=== PATIENT | female | born 2000 | race Hispanic/Latino ===

== ENCOUNTER 2020-09-27 19:18 | Day surgery (SDC) | payer MEDICAID ==
[2020-09-27 20:16] VITALS: BP 103/70; TEMP 98.5; BMI 33.3
[2020-09-27 20:17] LABS: Amnisure Test No Membranes Rupture (No Rupture)
[2020-09-27 20:18] LABS: Amnisure Internal Control QC ACCEPTABLE (ACCEPTABLE)
--- NOTE | 2020-09-27 21:00 | PDOC.FPROB ---
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 She states that today around 3pm she began to have some abdominal cramping which persisted, prompting her to come to the hospital. She denied VD, VB, CP, SOB, vision changes/blurry vision, fever/chills, dysuria, hematuria. She stated that she was feeling movement but no contractions at this time. Primary Care Physician: MARC Floyd FMR OB H&P: Current - Care : 0 Para: 1 Gestational age: 38.4 Due date: 10/07/20 Dating Criteria: 24 week sono - OB Labs Blood type: O RH: positive Antibody Screen: negative HIV: negative RPR: negative HepBsAg: negative Rubella: immune Urine drug screen: negative Gonorrhea: negative 1 hour gtt: 56 FMR OB H&P: History - Past Medical History PMH: -none - OB History OB History: -none - ROLL TESTER History ROLL TESTER History: -none - Surgical History Sx History: -none - Social History Social History: -no TAD - Family History Family History: -non contributory FMR OB H&P: Medications - Current Home Medications: Medication Instructions Recorded Confirmed Type No Known 09/27/20 09/27/20 History Allergies/Adverse Reactions: Allergies Allergy/AdvReac Type Severity Reaction Status Date / Time No Known Allergies Allergy Verified 09/27/20 20:02 FMR OB H&P: ROS - Review of Systems General: denies: fever/chills, night sweats, fatigue Eyes: denies: vision changes, double vision ENT: denies: nasal congestion, rhinorrhea Cardiovascular: denies: chest pain, palpitation, edema Respiratory: denies: cough, congestion, shortness of breath Gastrointestinal: reports: cramping. denies: abdominal pain, indigestion, bloating Genitourinary (Female): denies: incontinence, dysuria, hematuria, polyuria, v aginal discharge, vaginal pain, vaginal bleeding, vaginal pressure Musculoskeletal: denies: pain Neurologic: denies: numbness, weakness FMR OB H&P: Vital Signs - Maternal Vital signs: Vital Signs - First Documented Temp Pulse Resp BP 98.5 F 77 18 103/70 09/27/20 19:50 09/27/20 19:50 09/27/20 19:50 09/27/20 19:50 - Heart Tones Baseline: 150 Variability: moderate Acceleration: absent Category: category 1 [place] contractions every: none seen FMR OB H&P: Physical Exam - Physical Exam General: NAD, awake, alert and oriented HEENT: normocephalic and atraumatic, PERRLA Neck: supple Chest: non-tender to palpation Heart: RRR, normal S1/S2, no murmurs/rubs/gallops General: CTAB, no respiratory distress, good air movement, no wheezing Abdomen: soft, gravid Neurological: no focal deficit Lymphatic: no unusual bruising or bleeding Psychiatric: intact recent and remote memory, good judgement and insight, normal mood and affect - Pelvic Exam SVE: /-3 per nursing FMR OB H&P: Results - Labs Lab results: Laboratory Results - last 24 hr 09/27/20 19:50 Amnio Swab Test No Membranes Rupture FMR OB H&P: A/P Disposition: Pt 20 y/o at 38.4 wga dated by 24 wk sono presents today after feeling LOF. ##sIUP -at 38.4 wga dated with 24 wk sono -SVE /-3 per nursing -FHT, FHR 140-150s with mod variability. Cat 1 strip. No contractions noted -maternal labs negative so far -GBS negative -will order Amnsiure, perform sterile spec exam, and obtain bedside SARA ##Hx of E.coli UTI in -[place], was treated accordingly ##Late to Care -aware ##Hx of poor growth -aware -trended growth every 4-6 wks. Growth sono on 08/14 showed [place] 25.9% @ 32wga ##Excessive weight gain during -aware -gained about 50 lbs so far in , has discussed healthy diet and exercise Addendum: Amnisure was negative. Sterile spec exam performed with no pooling of fluid noted, discharge noted, for which VP3 swab was obtained. Bedside SARA was performed by Dr. Siddiqui which showed Q1 3.99, Q2 4.44, Q3 4.38, Q4 4.12. Therefore with all results, pt was determined to not be in labor, sent home with return precautions. Stated that we will call with VP3 results. Pt voiced understanding. Discussion: Date/Time: 09/27/202058 This H&P was discussed with Dr. Siddiqui who agree with the above documentation and plan. Addendum - Attending - Attending Attestation Date/Time: 09/28/20817 I personally evaluated the patient and discussed the management with Dr. Greene. I agree with the History, Examination, Assessment and Plan documented above with any addition or exceptions noted below. see my event note.
--- NOTE | 2020-09-27 21:13 | PDOC.EVN ---
Event Note - Event Note Event Note: seen and evaluated. Per residents, increased vaginal discharge. VP3 pending. sterile spec and amnisure negative. NST reactive. SARA approx 16 cm. d/c home. f/u VP3. RTC precautions given.
[2020-09-27] MEDS ORDERED: hydrALAZINE 20 MG/ML VIAL SLOW IVP PRN (21:31)
== END 2020-09-27 21:38 | disposition home or self-care (01) ==
LOC: L&D/OP 19:18
PROVIDERS: ATTEND Family Medicine
DX: O99.891 Other specified diseases and conditions complicating pregnancy (principal); N89.8 Other specified noninflammatory disorders of vagina; O36.5930 Maternal care for other known or suspected poor fetal growth, third trimester, not applicable or unspecified; O09.33 Supervision of pregnancy with insufficient antenatal care, third trimester; Z3A.38 38 weeks gestation of pregnancy
CPT/HCPCS: 76815; 84112; 87480; 87510; 87660; 99285

== ENCOUNTER 2020-09-29 00:11 | Inpatient (IN) | payer MEDICAID, OTHER ==
--- NOTE | 2020-09-29 00:52 | PDOC.FPROB ---
FMR OB H&P: HPI - History of Present Illness Chief Complaint: Contractions Indentification: 20 y/o at 38.6 wga dated by 24 wk sono History of Present Illness: Pt is a 20 y/o at 38.6 wga dated by 24 wk sono who presents to OB triage today with contractions that began at 5pm today that she stated were initially about 20 minutes apart and then became closer together 3-5 min apart. She states that she felt LOF also that soaked her underwear and noticed some blood as well which prompted her to come to the hospital. She states that she did not have VD and denied CP/SOB, headache, blurry vision. She did endorse movement and continues to endorse contractions. Primary Care Physician: SHADIC: Mariel FMR OB H&P: Current - Care : 1 Para: 0 Gestational age: 38.4 wga Due date: 10/07/20 Dating Criteria: 24 wk sono - OB Labs Blood type: O RH: positive Antibody Screen: negative HIV: negative RPR: negative HepBsAg: negative Rubella: immune Gonorrhea: negative Chlamydia: negative 1 hour gtt: 56 GBS: negative FMR OB H&P: History - Past Medical History PMH: -none - OB History OB History: -none - [place] CONSULTANT History [employer] CONSULTANT History: -none - Surgical History Sx History: -none - Social History Social History: -no TAD, FOB involved - Family History Family History: -non-contributory FMR OB H&P: Medications - Current Home Medications: Medication Instructions Recorded Confirmed Type No Known 09/27/20 09/27/20 History Allergies/Adverse Reactions: Allergies Allergy/AdvReac Type Severity Reaction Status Date / Time No Known Allergies Allergy Verified 09/27/20 20:02 FMR OB H&P: ROS - Review of Systems General: denies: fever/chills Eyes: denies: vision changes, double vision ENT: denies: nasal congestion, rhinorrhea Cardiovascular: denies: chest pain, palpitation Respiratory: denies: cough, congestion, shortness of breath Gastrointestinal: denies: abdominal pain, indigestion, diarrhea, constipation Genitourinary (Female): reports: contractions. denies: incontinence, dysuria, hematuria, polyuria, hesitancy, vaginal discharge, vaginal pain, vaginal bleeding, vaginal pressure Musculoskeletal: denies: pain FMR OB H&P: Vital Signs - Maternal Vital signs: BP 103/71 HR 66, RR 16 - Heart Tones Baseline: 140 Variability: moderate Acceleration: present Deceleration: absent Category: category 1 [place] contractions every: every 6-10 min FMR OB H&P: Physical Exam - Physical Exam General: NAD, awake, alert and oriented Heart: RRR, normal S1/S2, no murmurs/rubs/gallops General: CTAB, no respiratory distress, good air movement, no wheezing, no retractions Abdomen: gravid Musculoskeletal: FROM in all four extremities Neurological: no focal deficit Psychiatric: intact recent and remote memory, good judgement and insight, normal mood and affect - Pelvic Exam SVE: /-3 per nursing Membranes: spec exam performed which showed pooling of fluid FMR OB H&P: A/P Disposition: Pt 20 y/o at 38.6 wga dated by 24 wk sono presents today after feeling LOF and contractions. ##sIUP -at 38.6 wga dated with 24 wk sono -SVE /-3 per nursing -FHT: FHR 140-150s with mod variability. Cat 1 strip. contractions noted about 6-10 min apart, maternal VSS -maternal labs negative so far -GBS negative -spec exam showed pooling of fluid, some bloody show seen -camacho score currently a 5 ##Excessive weight gain during -aware -gained about 50 lbs so far in , has discussed healthy diet and exercise ##Late to Care -aware ##Hx of poor growth -aware -trended growth every 4-6 wks. Growth sono on 08/14 showed [place] 25.9% @ 32wga ##Hx of E.coli UTI in -[place], was treated accordingly PNC: Mariel Plan: continue to monitor. will recheck in a few hours and reassess. Discussion: Date/Time: 09/29/2051 This H&P was discussed with Dr. Lopez who agree with the above documentation and plan.
[2020-09-29] MEDS ORDERED: hydrALAZINE 20 MG/ML VIAL SLOW IVP PRN ×3 (01:05→18:16)
[2020-09-29] MEDS: Lactated Ringer's 1,000 ML IV SCH ×3 (01:10→07:23)
[2020-09-29] MEDS ORDERED: Lidocaine 1% (PF) 30 ML VIAL SC PRN (01:19)
[2020-09-29] MEDS ORDERED: NS / Oxytocin 40 units/1000ml 1,000 ML IV PRN (01:19)
[2020-09-29] MEDS ORDERED: Acetaminophen 500 MG TAB PO PRN (01:19)
[2020-09-29] MEDS ORDERED: Promethazine HCl 25 MG/ML VIAL IM PRN ×2 (01:19→05:07)
[2020-09-29] MEDS ORDERED: Ondansetron PF 4 MG/2 ML Vial IVP PRN ×3 (01:19→18:16)
[2020-09-29] MEDS ORDERED: NS w/ Oxytocin 10 units 500 ML IV SCH ×2 (01:30)
[2020-09-29] MEDS ORDERED: Butorphanol Tartrate 1 MG/ML VIAL SLOW IVP PRN (01:33)
[2020-09-29 01:44] LABS: Hemoglobin 11.7 g/dL (12.0-16.0); Mean Corpuscular HGB CONC 32.8 g/dL (32.0-36.0); Mean Corpuscular Hemoglobin 28.5 pg (25.0-35.0); Platelet Count 212 thou/uL (130-400); RBC Distribution Width 13.5 % (11.5-14.5); Red Blood Cell (RBC) Count 4.09 mill/uL (4.00-5.20); White Blood Cell (WBC) Count 13.1 thou/uL (4.8-10.8)
[2020-09-29 01:56] VITALS: BMI 33.3
[2020-09-29 03:08] LABS: HBSAg Index 0.23 S/CO (0-0.99); Hep B Surf Ag Non-Reactive S/CO (NonReactive)
[2020-09-29] MEDS ORDERED: Fentanyl 4 mcg/Bup 0.1% Cadd 100 ML in Premix Bag 1 BAG EPIDURAL SCH (04:00)
[2020-09-29] MEDS ORDERED: Acetaminophen 325 MG TAB PO PRN (05:07)
[2020-09-29] MEDS ORDERED: Naloxone HCl 0.4 mg/ml Vial IVP PRN ×2 (05:07)
[2020-09-29] MEDS ORDERED: diphenhydrAMINE 50 MG/ML VIAL IVP PRN (05:07)
[2020-09-29] MEDS ORDERED: ePHEDrine 50 MG/ML VIAL SLOW IVP PRN (05:07)
[2020-09-29] MEDS ORDERED: Lactated Ringer's 500 ML IV PRN (05:07)
[2020-09-29] MEDS ORDERED: Fentanyl 4 mcg/Bupivacaine 0.1% Cassette 100 ML EPIDURAL SCH (05:15)
[2020-09-29] MEDS ORDERED: Communication Order-Pharmacy FS SCH (05:15)
[2020-09-29 05:21] LABS: Syphilis Antibody Nonreactive (Nonreactive); Syphilis Antibody Index 0.05 S/CO (<1.00 Non-Reactive)
--- NOTE | 2020-09-29 07:17 | PDOC.LDPN ---
Labor & Delivery Progress Note - Subjective Subjective: comfortable - Objective Vital signs reviewed and normal: yes General: NAD, resting Dilation: 5 Effacement: 75% Station: -2 FHT: category 2 (periods of marked variability lasting 2-3 minutes with 1 episode lasting max 7 min, + accels, early decel present, FHT 150) [place] contractions every: 4-5 min Plan: continue plan of care -: Pt 20 y/o at 38.6 wga dated by 24 wk sono admitted for labor ##sIUP 38.6 wga dated with 24 wk sono. GBS negative. Maternal labs negative -spec exam on admission showed pooling of fluid, some bloody show seen 0030 3/50/-3, cat 1 strip, cxr 6-10 min 0600 5/75/-2, cat 2 strip due to episodes of marked variability and early decel, cxr 4-5 min ##Excessive weight gain during -aware -gained about 50 lbs so far in , has discussed healthy diet and exercise ##Late to Care -[place] ##Hx of poor growth -aware -trended growth every 4-6 wks. Growth sono on 08/14 showed [place] 25.9% @ 32wga ##Hx of E.coli UTI in -[place], was treated accordingly PNC: Mariel Plan: Continue to monitor strip. Recheck at 1000
[2020-09-29 07:56] LABS: SARS-CoV-2 MS2 Positive; SARS-CoV-2 N Gene Negative; SARS-CoV-2 S Gene Negative; SARS-CoV-2 by NAA Not Detected (NotDetected); SARS-CoV-2 orf1ab Negative
[2020-09-29] MEDS ORDERED: ePHEDrine 50 MG/ML VIAL ONE (08:44)
[2020-09-29] MEDS ORDERED: Bupivacaine/Epinephrine 0.25% 30 ML VIAL ONE (08:44)
--- NOTE | 2020-09-29 10:16 | PDOC.LDPN ---
Labor & Delivery Progress Note - Subjective Subjective: comfortable - Objective Vital signs reviewed and normal: yes General: NAD, resting Uterine fundus: non tender Dilation: 8 Effacement: 100% Station: 0 FHT: category 1 (1 early decel present, moderate variability, + accels, FHT baseline 130) Plan: continue plan of care -: Pt 20 y/o at 38.6 wga dated by 24 wk sono admitted for labor ##sIUP 38.6 wga dated with 24 wk sono. GBS negative. Maternal labs negative -spec exam on admission showed pooling of fluid, some bloody show seen 0030 3/50/-3, cat 1 strip, cxr 6-10 min 0600 5/75/-2, cat 2 strip due to episodes of marked variability and early decel, cxr 4-5 min 0800 7/90/0, cat 1 strip 0900 7/90/0, cat 1 strip, IUPC placed due to inability to monitor contractions with frequent position changes 1000 8/100/0, cat 1 strip ##Excessive weight gain during -aware -gained about 50 lbs so far in , has discussed healthy diet and exercise ##Late to Care -aware ##Hx of poor growth -aware -trended growth every 4-6 wks. Growth sono on 08/14 showed [place] 25.9% @ 32wga ##Hx of E.coli UTI in -[place], was treated accordingly PNC: Mariel Plan: Continue to monitor strip. Recheck at 1200
--- NOTE | 2020-09-29 12:45 | PDOC.LDPN ---
Labor & Delivery Progress Note - Subjective Subjective: comfortable - Objective Vital signs reviewed and normal: yes General: NAD Dilation: 9 Effacement: 100% Station: 0 FHT: category 1 [place] contractions every: 5-7 min Plan: continue plan of care -: Pt 20 y/o at 38.6 wga dated by 24 wk sono admitted for labor ##sIUP 38.6 wga dated with 24 wk sono. GBS negative. Maternal labs negative -spec exam on admission showed pooling of fluid, some bloody show seen 0030 3/50/-3, cat 1 strip, cxr 6-10 min 0600 5/75/-2, cat 2 strip due to episodes of marked variability and early decel, cxr 4-5 min 0800 7/90/0, cat 1 strip 0900 7/90/0, cat 1 strip, IUPC placed due to inability to monitor contractions with frequent position changes 1000 8/100/0, cat 1 strip 1200 9/100/0, cat 1 strip ##Excessive weight gain during -aware -gained about 50 lbs so far in , has discussed healthy diet and exercise ##Late to Care -aware ##Hx of poor growth -aware -trended growth every 4-6 wks. Growth sono on 08/14 showed [place] 25.9% @ 32wga ##Hx of E.coli UTI in -[place], was treated accordingly PNC: Mariel Plan: Continue to monitor strip. Recheck at 1400
[2020-09-29] MEDS: Dextrose 5%-Lactated Ringers 1,000 ML IV SCH ×2 (13:56→21:38)
--- NOTE | 2020-09-29 14:53 | PDOC.LDPN ---
Labor & Delivery Progress Note - Subjective Subjective: comfortable - Objective Vital signs reviewed and normal: yes General: NAD Uterine fundus: non tender Dilation: 9 Effacement: 100% Station: 0 FHT: category 1 [place] contractions every: 5-8min Plan: continue plan of care, labor augmentation -: Pt 20 y/o at 38.6 wga dated by 24 wk sono admitted for labor ##sIUP 38.6 wga dated with 24 wk sono. GBS negative. Maternal labs negative -spec exam on admission showed pooling of fluid, some bloody show seen 0030 3/50/-3, cat 1 strip, cxr 6-10 min 0600 5/75/-2, cat 2 strip due to episodes of marked variability and early decel, cxr 4-5 min 0800 7/90/0, cat 1 strip 0900 7/90/0, cat 1 strip, IUPC placed due to inability to monitor contractions with frequent position changes 1000 8/100/0, cat 1 strip 1200 9/100/0, cat 1 strip 1400 9/100/0, cat 1 strip ##Excessive weight gain during -aware -gained about 50 lbs so far in , has discussed healthy diet and exercise ##Late to Care -aware ##Hx of poor growth -aware -trended growth every 4-6 wks. Growth sono on 08/14 showed [place] 25.9% @ 32wga ##Hx of E.coli UTI in -[place], was treated accordingly PNC: Mariel Plan: Start pit for labor augmentation. Recheck in 2 hours.
[2020-09-29 16:37] LABS: Actual Bicarbonate (HCO3a) 21.1 mEq/L (22-28); Base Excess (BEa) -7.6 mEq/L (-2.0 to +3.0)
[2020-09-29 16:39] LABS: Actual Bicarbonate (HCO3v) 21 mEq/L (22-28); Base Excess -5.7 mEq/L (-2.0 to +3.0); pH (Cord, venous) 7.28 (7.32-7.43)
--- NOTE | 2020-09-29 16:52 | PDOC.OPDEL ---
OB Operative/Delivery Note Delivery Dr/Surgeon: Jose Ku: Attending Pre-Delivery Diagnosis: active labor Procedure/Post Delivery Dx: spontaneous vaginal delivery Anesthesia: epidural - Additional Findings/Plan Placenta delivered: spontaneous Compilations/Other Findings: Delivering Physician: Dr. Lizabeth Mitchell and Dr. Abdoulaye Floyd Attending: Dr. Александр Ayon Procedure: Spontaneous Vaginal Delivery Anesthesia: epidural QBL: 400 ml Pre-op Diagnosis: 1. Term intrauterine in labor Post-op Diagnosis: 1. Term intrauterine , delivered 2. Periurethral abrasion Indications: A 20 y/o female presents in active labor Delivery Note: This is 20 yo F @ 38.6 wks who delivered a viable F at 1613. Pt progressed through the antepartum course well. Once the baby began to crown it developed recurrent lates and delivery was assisted by the modified Ritgen maneuver which resulted in the delivery of a vigorous female over an intact perineum in the occipitoanterior position. Anterior shoulder and then remainder of the body delivered. Single nuchal cord easily reduced. The head was held down and mouth and nares were bulb suctioned. Cord clamped after 30 second delayed cord clamping and cut and cord blood collected. Placenta delivered intact as Radhames with a 3 vessel cord noted. Pitocin infusion was started. Fundal massage was performed and the fundus was firm. The cervix and vagina were inspected and found two hemostatic periurethral lacerations. Infant went to nursery in good condition for routine care. Apgars were 9/9 at 1 & 5 minutes, respectively. Patient tolerated delivery well and went to after routine recovery/care. FACULTY: Present for controlled under my supervision. I filed out the DC summary with details. Baby vigrous. Gas and placenta sent for occasional decels and mec stained placenta Post delivery plan: routine recovery
[2020-09-29] MEDS ORDERED: Milk Of Magnesia 30 ML UDCUP PO PRN (18:16)
[2020-09-29] MEDS ORDERED: Preparation H Ointment 28 GM TUBE PR PRN (18:16)
[2020-09-29] MEDS ORDERED: Benzocaine-Menthol 82.5 ML CAN TOP PRN (18:16)
[2020-09-29] MEDS ORDERED: diphenhydrAMINE 25 MG CAP PO PRN (18:16)
[2020-09-29] MEDS ORDERED: NS / Oxytocin 40 units/1000ml 1,000 ML IV SCH (18:16)
[2020-09-29] MEDS ORDERED: Lanolin Ointment 7 GM TUBE TOP PRN (18:16)
[2020-09-29] MEDS ORDERED: Bisacodyl 10 MG SUPP PR PRN (18:16)
[2020-09-29] MEDS: Docusate Calcium (SURFAK) 240 MG CAP PO SCH (21:51)
[2020-09-29] MEDS: Ibuprofen 800 MG TAB PO SCH (21:51)
[2020-09-30] MEDS: Ibuprofen 800 MG TAB PO SCH ×3 (06:19→21:23)
--- NOTE | 2020-09-30 07:12 | PDOC.PP ---
Post Progress Note Post Day #: 1 Subjective: No complaints this morning aside from vaginal soreness which she states is mild. Has had minimal additional vaginal bleeding. Attempted to breastfeed yesterday with difficulty. PO intake tolerated: yes Flatus: yes Ambulation: yes Vital Signs (12 hours) Temp Pulse Resp BP Pulse Ox 09/30/20 04:26 98.1 F 70 18 89/56 L 94 L 09/30/20 00:03 98.1 F 84 18 119/76 98 09/29/20 21:35 98.5 F 101 H 12 122/63 98 Weight Weight 87.997 kg - Physical Examination General: NAD Cardiovascular: RRR Respiratory: non-labored breathing Abdominal: + bowel sounds, no distention, appropriately TTP Skin: no rash Neurological: no gross focal deficits Psychiatric: A&Ox3, normal affect Result Diagrams: 09/29/20 01:32 Additional Labs: Post Labs Hep Bs Antigen Non-Reactive S/CO (NonReactive) 09/29/20 01:32 Blood Type O POSITIVE 09/29/20 02:14 - Assessment/Plan PPD 1 s/p - additional 150 ml blood loss to total 550 - progressing well, no major concerns - lact consult ordered for primip breast feeding mother Plan: expect DC home tomorrow. Routine post care.
[2020-09-30] MEDS ORDERED: Adacel (T-DAP) 0.5 ML SYRINGE IM ONE (09:00)
[2020-09-30] MEDS: Docusate Calcium (SURFAK) 240 MG CAP PO SCH ×2 (10:31→21:24)
[2020-09-30] MEDS: Prenatal Vitamin 1 TAB PO SCH (10:31)
[2020-09-30] MEDS: Ferrous Sulfate 325 MG TAB PO SCH ×2 (10:31→16:04)
[2020-10-01] MEDS: Ibuprofen 800 MG TAB PO SCH (06:28)
--- NOTE | 2020-10-01 08:01 | PDOC.PP ---
Post Progress Note Post Day #: 2 Subjective: No complaints today. Vaginal discomfort nearly resolved and well controlled with nsaids. No further vag bleeding. met with lact independent marketing consultant yesterday. PO intake tolerated: yes Flatus: yes Ambulation: yes Weight Weight 87.997 kg - Physical Examination General: NAD Cardiovascular: RRR Respiratory: non-labored breathing Abdominal: no distention, appropriately TTP Skin: no rash Psychiatric: A&Ox3, normal affect Result Diagrams: 09/29/20 01:32 Additional Labs: Post Labs Hep Bs Antigen Non-Reactive S/CO (NonReactive) 09/29/20 01:32 Blood Type O POSITIVE 09/29/20 02:14 - Assessment/Plan PPD2 s/p @ Term - progressing normally through PP period - no complaints today Plan: DC today. F/u in 6 weeks at [facility].
[2020-10-01 08:16] VITALS: BP 129/87; TEMP 98.2
[2020-10-01] MEDS: Ferrous Sulfate 325 MG TAB PO SCH (09:38)
[2020-10-01] MEDS: Docusate Calcium (SURFAK) 240 MG CAP PO SCH (09:39)
[2020-10-01] MEDS: Prenatal Vitamin 1 TAB PO SCH (09:39)
== END 2020-10-01 11:28 | disposition home or self-care (01) | DRG 807 ==
LOC: L&D/OP 00:11 → L&D 01:04 → 3SE 18:55
PROVIDERS: ADMIT Obstetrics & Gynecology; ATTEND Obstetrics & Gynecology
PROC: 10E0XZZ Delivery of Products of Conception, External Approach (ICD-10-PCS; principal; 2020-09-29)
PROC: 10H07YZ Insertion of Other Device into Products of Conception, Via Natural or Artificial Opening (ICD-10-PCS; 2020-09-29)
DX: O76 Abnormality in fetal heart rate and rhythm complicating labor and delivery (principal); Z37.0 Single live birth; Z3A.38 38 weeks gestation of pregnancy; Z87.440 Personal history of urinary (tract) infections; Z20.828 Contact with and (suspected) exposure to other viral communicable diseases; O77.0 Labor and delivery complicated by meconium in amniotic fluid; O71.82 Other specified trauma to perineum and vulva
CPT/HCPCS: 36415; 51702; 82805; 85027; 86780; 86850; 86900; 86901; 87340; 87635; 99285; J2590; J3490; U0003